=== PATIENT | female | born 1955 | race Caucasian/White ===

== ENCOUNTER 2022-06-30 10:22 | Day surgery (SDC) | payer MEDICARE, MEDICAID ==
[2022-06-28 15:25] VITALS: BMI 21.6
[2022-06-30 11:46] LABS: Hemoglobin 14.3 g/dL (12.0-16.0); Mean Corpuscular HGB CONC 33.1 g/dL (32.0-36.0); Mean Corpuscular Hemoglobin 32.5 pg (27.0-31.0); Mean Corpuscular Volume 98.3 fl (78.0-98.0); Mean Platelet Volume 8.7 fL (7.4-10.4); Platelet Count 221 10x3/uL (130-400); RBC Distribution Width 11.6 % (11.5-14.5); Red Blood Cell (RBC) Count 4.39 mill/uL (4.20-5.40); White Blood Cell (WBC) Count 9.4 10x3/uL (4.8-10.8)
[2022-06-30] MEDS ORDERED: Thrombin 5000 UNITS/5 ML VIAL ONE (11:47)
[2022-06-30] MEDS ORDERED: Neomycin-Polymyxin 1 ML AMP ONE (11:47)
[2022-06-30 12:04] LABS: PTT 25.6 sec (22.9-36.1); Prothrombin Time 13.4 sec (12.0-14.7)
[2022-06-30 12:07] LABS: Anion Gap 13 mmol/L (10-20); BUN (Urea Nitrogen) 15 mg/dL (9.8-20.1); Calc. Creatinine Clearance 57 mL/min (70-130); Calcium 9.5 mg/dL (7.8-10.44); Carbon Dioxide 24 mmol/L (23-31); Chloride 102 mmol/L (98-107); Estimated GFR 70; Glucose 87 mg/dL (80-115); Potassium 4.7 mmol/L (3.5-5.1); Sodium 134 mmol/L (136-145)
[2022-06-30] MEDS ORDERED: Midazolam HCl 2 mg/2 ml Vial ONE (12:10)
[2022-06-30] MEDS ORDERED: CEFAZOLIN 2 GM VIAL ONE (12:11)
[2022-06-30] MEDS ORDERED: Sodium Chloride 0.9% 100 ML ONE (12:11)
[2022-06-30] MEDS ORDERED: fentaNYL PF 100 MCG/2 ML SYRINGE ONE (12:13)
[2022-06-30] MEDS ORDERED: Fentanyl 250 MCG/5 ML VIAL ONE (12:17)
[2022-06-30] MEDS ORDERED: Glycopyrrolate 0.2 MG/ML 5 ML SYRINGE ONE (12:31)
[2022-06-30] MEDS ORDERED: Rocuronium Bromide 10 MG/ML (10ML VIAL) ONE (12:31)
[2022-06-30] MEDS ORDERED: ePHEDrine 50 MG/ML VIAL ONE (12:31)
[2022-06-30] MEDS ORDERED: Ondansetron PF 4 MG/2 ML Vial ONE (12:31)
[2022-06-30] MEDS ORDERED: Dexamethasone 20 MG/5 ML VIAL ONE (12:31)
[2022-06-30] MEDS ORDERED: NEOSTIGMINE 3 MG/3 ML SYR 3 MG/3 ML SYRINGE ONE (12:31)
[2022-06-30] MEDS ORDERED: Lidocaine 1% PF 5 ML VIAL ONE (12:31)
[2022-06-30] MEDS ORDERED: Labetalol HCl 100 MG/20 ML VIAL ONE (12:31)
[2022-06-30] MEDS ORDERED: Phenylephrine 10 MG/ML VIAL ONE (12:31)
[2022-06-30] MEDS ORDERED: PROPOFOL 200 MG/20 ML VIAL ONE (12:31)
[2022-06-30 12:36] LABS: Eosinophils 4 % (0-10); Lymphocytes 37 % (21-51); MDiff Complete? YES; Monocytes 6 % (0-10); Neutrophil 53 % (42-75); Platelet Morphology Comment Appears Adequate; Polychromasia SLIGHT = 2-3 cells (100X) (0-2/hpf)
[2022-06-30] MEDS ORDERED: HYDROmorphone 0.5 MG/0.5 ML SYRINGE ONE ×2 (15:56→16:21)
[2022-06-30] MEDS ORDERED: Promethazine HCl 25 MG/ML VIAL ONE (15:56)
[2022-06-30] MEDS ORDERED: Cyclobenzaprine 10 MG TAB ONE (17:27)
[2022-06-30] MEDS ORDERED: HYDROcodone/Acetaminophen 5/325 mg Tablet ONE (18:29)
== END 2022-06-30 18:39 | disposition home or self-care (01) ==
LOC: SDC 10:22
PROVIDERS: ATTEND Neurological Surgery
PROC: 0RG20A0 Fusion of 2 or more Cervical Vertebral Joints with Interbody Fusion Device, Anterior Approach, Anterior Column, Open Approach (ICD-10-PCS; principal; 2022-06-30)
PROC: 07B10ZX Excision of Right Neck Lymphatic, Open Approach, Diagnostic (ICD-10-PCS; 2022-06-30)
DX: M50.021 Cervical disc disorder at C4-C5 level with myelopathy (principal); M51.27 Other intervertebral disc displacement, lumbosacral region; R59.0 Localized enlarged lymph nodes; M19.90 Unspecified osteoarthritis, unspecified site; G89.29 Other chronic pain; I11.9 Hypertensive heart disease without heart failure; E78.5 Hyperlipidemia, unspecified; I25.10 Atherosclerotic heart disease of native coronary artery without angina pectoris; I25.2 Old myocardial infarction; I73.9 Peripheral vascular disease, unspecified; Z87.891 Personal history of nicotine dependence; Z79.2 Long term (current) use of antibiotics; Z79.620 Long term (current) use of immunosuppressive biologic; Z79.82 Long term (current) use of aspirin; Z79.899 Other long term (current) drug therapy; Z88.8 Allergy status to other drugs, medicaments and biological substances
CPT/HCPCS: 20930; 20936; 22551; 22552; 22845; 22853 ×2; 38510; 80048; 85025; 85610; 85730; C1713 ×5; 88305; J1100; J1170; J2250; J2370; J2405; J2550; J2704; J3010; J3490